=== PATIENT | female | born 1965 | race Caucasian/White ===

== ENCOUNTER → 2017-09-15 | Outpatient (CLI) | payer OTHER ==
[~2017-09-15] MED LIST: ACET-1256 PO; ATEN-173 PO; DICL-201 PO; LACT3000 PO; LISI40TA PO; OMEP20TA14 PO; ONDA4TAB46 PO; PARO1TAB27 PO; PEDICHW44 PO; VTMD PO; [UNRECOGNIZED DRUG - OTHER] TOP
[2017-09-15 14:25] LABS: BLOOD UREA NITROGEN 15 mg/dl (7-18); CALCIUM 8.8 mg/dl (8.5-10.1); CARBON DIOXIDE 27 mmol/L (21-32); CREATININE 0.71 mg/dl (0.60-1.20); GLUCOSE 105 mg/dl (70-99); SODIUM 137 mmol/L (136-145)
[2017-09-15 14:27] LABS: CHOLESTEROL 166 mg/dl (0-200); LDL CHOLESTEROL CALCULATED 94 mg/dl
[2017-09-16 07:32] LABS: HEMOGLOBIN A1C 5.5 % (4.5-5.6)
== END | disposition home or self-care (01) ==
LOC: C.LABBC 10:25
PROVIDERS: ATTEND Family Medicine
DX: Z13.6 Encounter for screening for cardiovascular disorders (principal); E66.01 Morbid (severe) obesity due to excess calories